=== PATIENT | female | born 1960 | race Caucasian/White ===

== ENCOUNTER 2019-03-23 09:47 | Day surgery (SDC) | payer OTHER ==
[2019-03-23] MEDS ORDERED: FENTANYL CITRATE INJ/PF 100 MCG/2 ML AMPUL ONE (10:38)
[2019-03-23] MEDS ORDERED: DEXAMETHASONE SOD PHOS INJ 10 MG/1 ML VIAL ONE (10:39)
[2019-03-23] MEDS ORDERED: PROPOFOL INJ 200 MG/20 ML VIAL IV ONE (10:39)
[2019-03-23] MEDS ORDERED: ONDANSETRON HCL INJ/PF 4 MG/2 ML SDV ONE (10:39)
[2019-03-23] MEDS ORDERED: MIDAZOLAM 2 MG/2 ML INJ ONE (10:40)
[2019-03-23] MEDS ORDERED: BACITRACIN ZINC OINTMENT 15 GM ONE (10:49)
[2019-03-23] MEDS ORDERED: COCAINE HCL 4% TOPICAL SOLN 4 ML ONE (10:49)
[2019-03-23] MEDS ORDERED: OXYMETAZOLINE HCL 0.05% NASAL SPRAY 15 ML BOTTLE ONE (10:50)
[2019-03-23] MEDS ORDERED: LIDOCAINE 2%/EPINEPHRINE INJ 1.7 ML CARTRIDGE ONE (10:50)
--- NOTE | 2019-03-23 12:06 | Operative Report ---
Operative Report-[facility] Operative Report: Date: 23 March 2019 History: Patient with a history of right eustachian tube dysfunction. Presents today for right myringotomy with tympanostomy tube placement and balloon dilation right eustachian tube. Informed consent was obtained for the patient. Preoperative Diagnosis: 1. Eustachian tube dysfunction Postoperative diagnosis: Same as above Procedure: 1. Eustachian tube balloon dilation/reconstruction nasopharynx [CPT = 62432], right 2. Myringotomy with insertion tympanostomy tube, right ear 3. Rigid nasal endoscopy, right Surgeon: Gilmer Diehl MD, FACS, [facility] Anesthesia: GETA Description of procedure: After receiving informed consent from the patient, the patient was transported to the operating room and placed supine on the operating room table. After successful induction and intubation by anesthesia cottonoids saturated with 4% cocaine were placed into right nasal cavity for approximately 5 minutes. They were then removed. Nasal septum and inferior turbinate were injected with 2% Xylocaine with 100,000 epinephrine. The cottonoids were placed back into the nasal cavity. The operating microscope was brought into the field and under binocular microscopy a properly sized ear speculum was placed into the right ear. The tympanic membrane was visualized and a radial incision was made in the anterior inferior quadrant. Middle ear space was dry, tympanic membrane was retracted. A Paparella PE tube was then placed into this incision and otic drops placed into the external auditory canal. Attention was then directed to the eustachian tube balloon dilation portion of the procedure. The cottonoids were removed from the nasal cavity. A rigid nasal endoscope along with the AREA eustachian tube balloon dilation system was inserted in the right nasal cavity. The torus tubarius was visualized. Under endoscopic guidance the balloon was inserted into the right eustachian tube lumen. The balloon was then insufflated to 12 atmospheric pressure for 2 minutes. The balloon was then let down and removed from the eustachian tube lumen. The endoscope and balloon system was then removed from the nasal cavity. The patient tolerated the procedure well without any complications. Patient was then given back to anesthesia who successfully extubated the patient without any complications. Estimated blood loss: Minimal Fluids: 200 mL The patient was transferred to the postanesthesia care unit in stable condition with spontaneous respirations.
== END 2019-03-23 12:44 | disposition home or self-care (01) ==
LOC: SC 09:47
PROVIDERS: ATTEND Otolaryngology
DX: H69.81 Other specified disorders of Eustachian tube, right ear (principal); H65.21 Chronic serous otitis media, right ear; I10 Essential (primary) hypertension; Z86.73 Personal history of transient ischemic attack (TIA), and cerebral infarction without residual deficits; E07.9 Disorder of thyroid, unspecified; K21.9 Gastro-esophageal reflux disease without esophagitis; H90.5 Unspecified sensorineural hearing loss; H90.3 Sensorineural hearing loss, bilateral; Z87.891 Personal history of nicotine dependence
CPT/HCPCS: 42950; 69436; J2250; J3490 ×3; J3010; J2405; J2704; J1100; 170

== ENCOUNTER 2019-11-17 08:49 | Emergency (ER) | payer OTHER ==
[2019-11-17] MEDS ORDERED: ACETAMINOPHEN 325 MG TABLET PO ONE (09:56)
[2019-11-17 10:02] LABS: ABSOLUTE EOSINOPHILS # (AUTO) 0.1 10^3/uL (0.0-0.6); ABSOLUTE LYMPHOCYTES (AUTO) 0.7 10^3/uL (0.5-4.7); ABSOLUTE MONOCYTES (AUTO) 0.7 10^3/uL (0.1-1.4); ABSOLUTE NEUT (AUTO) 11.1 10^3/uL (1.7-8.2); BASOPHILS % (AUTO) 0.3 % (0-2); EOSINOPHILS % (AUTO) 0.7 % (0-6); HEMATOCRIT 40.3 % (36.0-47.0); HEMOGLOBIN 13.7 g/dL (12.0-15.5); LYMPHOCYTES % (AUTO) 5.6 % (13-45); MEAN CORPUSCULAR HEMOGLOBIN 31.2 pg (27.0-33.4); MEAN CORPUSCULAR HGB CONC 33.9 g/dL (32.0-36.0); MEAN CORPUSCULAR VOLUME 92 fl (80-97); MONOCYTES % (AUTO) 5.2 % (3-13); PLATELET COUNT 208 10^3/uL (150-450); RED BLOOD COUNT 4.37 10^6/uL (3.72-5.28); RED CELL DISTRIBUTION WIDTH 14.7 % (11.5-14.0); SEGMENTED NEUTROPHILS % (AUTO) 88.2 % (42-78); TOTAL CELLS COUNTED % (AUTO) 100 %; WHITE BLOOD COUNT 12.5 10^3/uL (4.0-10.5)
[2019-11-17 10:19] LABS: ALBUMIN 4.1 g/dL (3.5-5.0); ALKALINE PHOSPHATASE 89 U/L (38-126); ANION GAP 12 (5-19); ASPARTATE AMINO TRANSFERASE 25 U/L (14-36); BILIRUBIN,TOTAL 0.5 mg/dL (0.2-1.3); BLOOD UREA NITROGEN 18 mg/dL (7-20); CALCIUM 9.3 mg/dL (8.4-10.2); CARBON DIOXIDE 23 mmol/L (22-30); CHLORIDE 102 mmol/L (98-107); GLUCOSE 118 mg/dL (75-110); POTASSIUM 3.9 mmol/L (3.6-5.0)
--- NOTE | 2019-11-17 10:40 | EKG REPORT ---
SEVERITY:- ABNORMAL ECG - SINUS RHYTHM NONSPECIFIC T ABNORMALITIES, ANT-LAT LEADS : Confirmed by: Jose Francisco Donahue MD 17-Nov-2019 10:40:12
--- NOTE | 2019-11-17 11:01 | RADIOLOGY REPORT (SQ) ---
EXAM DESCRIPTION: CHEST SINGLE VIEW IMAGES COMPLETED DATE/TIME: 11/17/2019 10:31 am REASON FOR STUDY: chest tightness COMPARISON: None. EXAM PARAMETERS: NUMBER OF VIEWS: One view. TECHNIQUE: Single frontal radiographic view of the chest acquired. RADIATION DOSE: NA LIMITATIONS: None. FINDINGS: LUNGS AND PLEURA: No opacities, masses or pneumothorax. No pleural effusion. MEDIASTINUM AND HILAR STRUCTURES: No masses. Contour normal. HEART AND VASCULAR STRUCTURES: Heart normal in size. Normal vasculature. BONES: No acute findings. HARDWARE: None in the chest. OTHER: No other significant finding. IMPRESSION: NO ACUTE RADIOGRAPHIC FINDING IN THE CHEST. TECHNICAL DOCUMENTATION: JOB ID: [id number] 2010 [employer]- All Rights Reserved Reading location - IP/workstation name: [email or web address]
--- NOTE | 2019-11-17 11:13 | ER Document Report ---
ED General - General Stated Complaint: FEVER,CHILLS,HEADACHE Time Seen by Provider: 11/17/19 10:47 Primary Care Provider: BRENDA SORESNEN, DIRECT MARKETING MANAGER [Primary Care Provider] - Follow up as needed TRAVEL OUTSIDE OF THE [place] IN LAST 30 DAYS: No - HPI Notes: Patient is a 59-year-old female who presents to the emergency department for evaluation. She states that yesterday she developed chest tightness. In the middle the night she felt chilled. This morning she woke and her temperature was 100.6, so she presents to the ED for further evaluation. She states she was eating and drinking normally. She denies any pain at this time, she states she just has continued chest tightness. She really has not been coughing. She denies any shortness of breath. She has had diarrhea for the last several months, had a colonoscopy 2 months ago, but states she has not noted any change in her bowel habits from her current baseline. - Related Data Allergies/Adverse Reactions: morphine Allergy (Verified 11/17/19 12:13) ITCHING Sulfa (Sulfonamide Antibiotics) Allergy (Verified 11/17/19 12:13) HIVES; ITCHING Home Medications: List reviewed with patient. Includes Neurontin, Prozac, Synthroid, 2 antihypertensive medications, Protonix Past Medical History - General Information source: Patient - Social History Smoking Status: Former Smoker Family History: Other - CHF - Past Medical History Cardiac Medical History: Reports: Hx Hypertension Denies: Hx Heart Attack Pulmonary Medical History: Denies: Hx Asthma Neurological Medical History: Denies: Hx Cerebrovascular Accident, Hx Seizures Endocrine Medical History: Reports: Hx Hypothyroidism GI Medical History: Reports: Hx Gastroesophageal Reflux Disease. Denies: Hx Hepatitis, Hx Hiatal Hernia, Hx Ulcer Infectious Medical History: Denies: Hx Hepatitis Past Surgical History: Denies: Hx Mastectomy, Hx Open Heart Surgery, Hx Pacemaker Review of Systems - Review of Systems Constitutional: See HPI Cardiovascular: See HPI Gastrointestinal: See HPI -: Yes All other systems reviewed and negative Physical Exam - Vital signs Vitals: Temp Pulse Resp BP Pulse Ox 101.6 F H 111 H 18 134/81 H 97 11/17/19 08:56 11/17/19 08:56 11/17/19 08:56 11/17/19 08:56 11/17/19 08:56 - Notes Notes: Vital signs reviewed, please refer to chart. Head is normocephalic, atraumatic. Pupils equal round, reactive to light. Neck is supple without meningismus. Heart is regular rate and rhythm. Lungs are clear to auscultation bilaterally. Abdomen is soft, nontender, normoactive bowel sounds throughout. Extremities without cyanosis, clubbing. Posterior calves are nontender. Peripheral pulses are equal. Skin is warm and dry. Patient is awake, alert, neurological exam is nonfocal. Course - Re-evaluation Re-evalutation: 11/17/19 11:11 Patient presents to the emergency department for evaluation. She is febrile on arrival. She is given Tylenol. Her laboratory investigations were ordered and showed a mild leukocytosis. Her chest x-ray is interpreted by myself as well as radiology as being negative. I did add a troponin in this patient who is obese, with high blood pressure, as well as a family history of coronary artery disease. She has had a negative stress test in the past, but I encouraged her to follow-up with her primary care doctor and discuss perhaps ordering this as an outpatient. There is no clear consolidation on her chest x-ray, but she is early in her course. Her symptoms do not point to any other clear etiology. COVID-19 testing is ordered. Awaiting troponin. If it is is unremarkable as expected, patient will be sent home as a PUI. She is to follow-up closely with her primary care provider. Otherwise symptomatic medications as needed for her fever and any other symptoms that develop. 11/17/19 12:18 Patient's troponin is negative at this time. I do suspect her chest tightness is secondary to illness. She is to treat symptomatically at home for fever, follow-up closely with her primary care. She is given information on COVID-19. She is to return to the ED with worsening or new concerning symptoms of any sort. - Vital Signs Vital signs: Temp Pulse Resp BP Pulse Ox 98.4 F 111 H 18 134/81 H 97 11/17/19 11:36 11/17/19 08:56 11/17/19 08:56 11/17/19 08:56 11/17/19 08:56 - Laboratory Result Diagrams: 11/17/19 09:45 11/17/19 09:45 Laboratory results interpreted by me: 11/17/19 11/17/19 09:45 09:45 WBC 12.5 H RDW 14.7 H Lymph % (Auto) 5.6 L Absolute Neuts (auto) 11.1 H Seg Neutrophils % 88.2 H Sodium 136.6 L Glucose 118 H - Diagnostic Test Radiology reviewed: Image reviewed, Reports reviewed Radiology results interpreted by me: 11/17/19 11:12 Chest X-Ray 11/17/19 00:00 IMPRESSION: NO ACUTE RADIOGRAPHIC FINDING IN THE CHEST. - EKG Interpretation by Me Additional EKG results interpreted by me: 11/17/19 11:12 Sinus mechanism with a rate of 96 bpm. Normal axis and intervals. Nonspecific T wave flattening throughout, but no ST elevation concerning for infarction. No deep T wave inversions. There are no old studies available for comparison. Discharge - Discharge Clinical Impression: Chest tightness, Person under investigation for COVID-19 Fever Qualifiers: Fever type: unspecified Qualified Code(s): R50.9 - Fever, unspecified Condition: Stable Disposition: HOME, SELF-CARE Instructions: Acetaminophen, Fever ([facility]), Viral Syndrome ([facility]), COVID-19 Guidance for Persons Under Investigation, Chest Pain of Unclear Cause ([facility]) Additional Instructions: I suspect the symptoms you are having in your chest are secondary to a viral illness, the same illness that is causing your fever. Your chest x-ray failed to show any significant pneumonia. Your blood work was unremarkable. You are being tested for COVID-19. Please adhere to the guidance given in the paperwork, socially isolate, family to socially isolate, you will be contacted with results. Otherwise, Tylenol as needed for fever, [id number] medicat ions as needed for symptoms. If you develop increased chest tightness, shortness of breath, or any other new or concerning symptoms, please return immediately to the emergency department for evaluation. Referrals: BRENDA SORENSEN NP [Primary Care Provider] - Follow up as needed
[2019-11-17 12:59] VITALS: BP 124/82
== END 2019-11-17 12:40 | disposition home or self-care (01) ==
LOC: ER 08:49
DX: R50.9 Fever, unspecified (principal); R51 Headache; I10 Essential (primary) hypertension; Z88.6 Allergy status to analgesic agent; Z88.2 Allergy status to sulfonamides; Z20.828 Contact with and (suspected) exposure to other viral communicable diseases
CPT/HCPCS: 93005; 99284; 36415; 85025; 87635; 80053; 84484; 71045; 93010; C9803